=== PATIENT | male | born 1970 | race African-American/Black ===

== ENCOUNTER → 2016-12-25 | Outpatient (CLI) | payer OTHER ==
[~2016-12-25] MED LIST: LISINOPRIL20 MG PO; LORTAB 5-325 M1 EACH PO; MOTRIN600 MG PO; NAPROSYN500 MG PO; SKELAXIN800 MG PO; TRAMADOL HCL50 MG PO
== END | disposition home or self-care (01) ==
LOC: CDC 12:30
DX: R00.1 Bradycardia, unspecified (principal); R94.31 Abnormal electrocardiogram [ECG] [EKG]; S83.231A Complex tear of medial meniscus, current injury, right knee, initial encounter; M25.461 Effusion, right knee; R26.2 Difficulty in walking, not elsewhere classified
CPT/HCPCS: 93000

== ENCOUNTER 2017-01-01 13:33 | Emergency (ER) | payer OTHER ==
[~2017-01-01] VITALS: Ht 177.8 cm; Wt 91.5 kg
[2017-01-01] MEDS ORDERED: ENDOCET 5-3251 EACH PO (14:18)
[2017-01-01] MEDS ORDERED: NORCO 5/3251 TABLET PO (14:57)
[2017-01-01 17:20] VITALS: BP 195/100
== END 2017-01-01 17:21 | disposition home or self-care (01) ==
LOC: EME 13:33
DX: M25.561 Pain in right knee (principal); G89.18 Other acute postprocedural pain; I10 Essential (primary) hypertension
CPT/HCPCS: 99281; 99284; J2270; J3010